=== PATIENT | female | born 2000 | race African-American/Black ===

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

== ENCOUNTER 2021-08-17 14:00 | Emergency (ER) | payer MEDICAID ==
[~2021-08-17] VITALS: Ht 172.7 cm; Wt 97.5 kg
[2021-08-17 14:00] VITALS: BP 131/74
[2021-08-17 15:14] LABS: Basophils # (auto) 0.1 10 ^3/uL (0-0.2); Eosinophils # (auto) 0.1 10 ^3/uL (0-0.8); Eosinophils % (auto) 1.5 % (0.0-7.0); Hematocrit 37.3 % (36.0-46.0); Hemoglobin 12.4 g/dL (12.2-16.2); Lymphocytes # (auto) 2.2 10 ^3/uL (0.4-5.4); Mean Corpuscular Hemoglobin 27.9 pg (28.0-32.0); Mean Corpuscular Hgb Conc. 33.2 g/dL (32.0-36.0); Monocytes # (auto) 0.5 10 ^3/uL (0-1.3); Monocytes % (auto) 9.8 % (0.0-12.0); Neutrophils # (auto) 2.6 10 ^3/uL (1.6-8.6); Neutrophils % (auto) 47.7 % (37.0-80.0); Nucleated Red Blood Cells % 0.3 %; Red Blood Cells 4.45 10^6/uL (4.0-5.20); Red Cell Distribution Width 13.5 % (11.8-14.3); White Blood Cell 5.5 10^3/uL (4.4-10.8)
[2021-08-17 15:20] LABS: BUN/Creatinine Ratio 11.7; Calcium 8.8 mg/dL (8.5-10.1); Potassium 4.1 mmol/L (3.5-5.1)
[2021-08-17 15:42] LABS: Urine Bacteria FEW /hpf (None Seen); Urine Blood Negative /uL (Negative); Urine Specific Gravity 1.022 (1.001-1.035); Urine WBC 6 /hpf (0 - 5)
[2021-08-17] MEDS ORDERED: SULF400T11 PO (16:09)
[2021-08-17] MEDS ORDERED: CIPRSUS OT (16:09)
[2021-08-17] MEDS ORDERED: PHEN200T16 PO (16:09)
== END 2021-08-17 16:11 | disposition home or self-care (01) ==
LOC: ER 14:00
DX: N39.0 Urinary tract infection, site not specified (principal); H60.91 Unspecified otitis externa, right ear
CPT/HCPCS: 36415; 80048; 81001; 81025; 85025

== ENCOUNTER 2021-10-06 18:54 | Emergency (ER) | payer MEDICAID ==
[~2021-10-06] VITALS: Ht 172.7 cm; Wt 130.9 kg
[~2021-10-06 18:54] MED LIST: CIPRSUS OT; PHEN200T16 PO; SULF400T11 PO
[2021-10-06 18:57] VITALS: BP 126/72
== END 2021-10-06 23:15 | disposition left against medical advice (07) ==
LOC: ER 18:54
DX: R22.9 Localized swelling, mass and lump, unspecified (principal); Z53.21 Procedure and treatment not carried out due to patient leaving prior to being seen by health care provider

== ENCOUNTER 2021-11-01 11:13 | Emergency (ER) | payer MEDICAID ==
[~2021-11-01] VITALS: Ht 172.7 cm; Wt 104.3 kg
[2021-11-01 11:49] VITALS: BP 136/76
[2021-11-01] MEDS ORDERED: SULF400T11 PO (12:50)
[2021-11-01] MEDS ORDERED: KETO2CRE4 TOP (12:50)
== END 2021-11-01 12:58 | disposition home or self-care (01) ==
LOC: ER 11:13
DX: L30.4 Erythema intertrigo (principal); N39.0 Urinary tract infection, site not specified

== ENCOUNTER 2021-12-25 10:28 | Emergency (ER) | payer MEDICAID ==
[~2021-12-25 10:28] MED LIST changes: +KETO2CRE4 TOP
== END 2021-12-25 10:46 | disposition left against medical advice (07) ==
LOC: ER 10:30
DX: H57.12 Ocular pain, left eye (principal); R10.2 Pelvic and perineal pain; Z53.21 Procedure and treatment not carried out due to patient leaving prior to being seen by health care provider

== ENCOUNTER 2024-07-04 11:42 | Emergency (ER) | payer MEDICAID, OTHER ==
[~2024-07-04] VITALS: Ht 172.7 cm; Wt 118.6 kg
[~2024-07-04 11:42] MED LIST changes: +NITR-87 PO; +PHEN-922 PO; -PHEN200T16 PO
[2024-07-04 11:55] VITALS: BP 120/78; PULSE 86; RESP 17; O2SAT 99
== END 2024-07-04 13:39 | disposition left against medical advice (07) ==
LOC: ER 11:42
DX: N93.9 Abnormal uterine and vaginal bleeding, unspecified (principal); R10.9 Unspecified abdominal pain; Z53.21 Procedure and treatment not carried out due to patient leaving prior to being seen by health care provider